=== PATIENT | female | born 1970 | race Caucasian/White ===

== ENCOUNTER 2023-11-05 18:59 | Emergency (ER) | payer OTHER, SELFPAY ==
[2023-11-05 19:09] VITALS: BP 193/91; PULSE 97; RESP 18; TEMP 36.8; O2SAT 96; BMI 34.3
--- NOTE | 2023-11-05 19:17 | DI.RAD.S_ITS ---
PROCEDURE: XR WRIST LT MIN 3V INDICATIONS: Fall, pain, decreased ROM, previous rotator cuff surgery TECHNIQUE: For views of the wrist were acquired. COMPARISON: [facility], CR, XR SHOULDER LT MIN 2V, 11/05/2023, 19:18. FINDINGS: Bones: No fractures or dislocations. No suspicious bony lesions. Moderate to severe osteoarthritic changes, most pronounced at the triscaphe joint and the 1st carpometacarpal joint. Soft tissues: No suspicious soft tissue calcifications. IMPRESSION: 1. No acute bony abnormality. 2. Moderate to severe degenerative joint disease. Dictated by: Angie Fernandez M.D. on 11/05/2023 at 19:57 Approved by: Angie Fernandez M.D. on 11/05/2023 at 19:59
--- NOTE | 2023-11-05 19:17 | DI.RAD.S_ITS ---
PROCEDURE: XR SHOULDER LT MIN 2V INDICATIONS: Fall, pain, decreased ROM, previous rotator cuff surgery TECHNIQUE: 3 views of the shoulder were acquired. COMPARISON: [facility], CR, XR WRIST LT MIN 3V, 11/05/2023, 19:18. FINDINGS: Bones: No fractures or dislocations. No suspicious bony lesions. Postsurgical changes related to rotator cuff tendon repair. Superior migration of the humeral head, in keeping with chronic rotator cuff tendon tear. Visualized ribs appear intact. Soft tissues: No suspicious soft tissue calcifications. IMPRESSION: No acute bony abnormality. If clinical symptoms persist or clinical suspicion for pathology is high, a repeat examination in 7-10 days, or advanced imaging such as CT or MRI is suggested for further evaluation. Dictated by: Angie Fernandez M.D. on 11/05/2023 at 19:59 Approved by: Angie Fernandez M.D. on 11/05/2023 at 20:00
[2023-11-05] MEDS: ACETAMINOPHEN 325 MG TABLET 650 MG PO (20:43)
--- NOTE | 2023-11-05 20:43 | ED.GENADULT ---
HPI - General Adult General Chief complaint: Extremity Injury, Upper Stated complaint: GLF, L Shoulder/Wrist Injury Time Seen by Provider: 11/05/23 20:38 Source: patient Mode of arrival: Family Vehicle History of Present Illness HPI narrative: Patient is a 53-year-old female. Has had multiple rotator cuff surgeries to her left and right shoulders. She stated that while camping today she tripped and fell landing on her left shoulder and left wrist. She thinks she was potentially injured the rotator cuff under left shoulder once again. She reports no other injuries from the event. Did not hit her head. No loss of consciousness. Not on anticoagulation. Related Data Allergies Allergy/AdvReac Type Severity Reaction Status Date / Time aspirin Allergy Verified 11/05/23 19:21 iron Allergy Verified 11/05/23 19:21 latex Allergy Verified 11/05/23 19:21 phenobarbital Allergy Verified 11/05/23 19:21 adhesive AdvReac Verified 11/05/23 19:21 adhesive tape AdvReac Verified 11/05/23 19:21 morphine AdvReac Hallucinati Verified 11/05/23 19:21 ng NSAIDS (Non-Steroidal AdvReac Gastrointestinal Verified 11/05/23 19:21 Anti-Inflamma Upset Review of Systems Constitutional Constitutional: Reports system reviewed and no additional complaints, except as documented Musculoskeletal Musculoskeletal: Reports system reviewed and no additional complaints, except as documented Integumentary/Breasts Skin/Breast: Reports system reviewed and no additional complaints, except as documented Neurologic Neurologic: Reports system reviewed and no additional complaints, except as documented Exam Initial Vital Signs Initial Vital Signs: Vital Signs Temperature 98.3 F 11/05/23 19:09 Pulse Rate 97 H 11/05/23 19:09 Respiratory Rate 18 11/05/23 19:09 Blood Pressure 193/91 H 11/05/23 19:09 Pulse Oximetry 96 11/05/23 19:09 Oxygen Delivery Method Room Air 11/05/23 19:09 Cardio Pulses: radial pulses present on the left Skin General: no rashes or lesions noted Neuro Sensory Exam: no sensory deficits noted Extrem Other: Discomfort with palpation of the left shoulder left elbows unremarkable. Course Orders Ordered: ED Orders 11/05/23 19:17 XR shoulder LT min 2V Stat XR wrist LT min 3V Stat Discontinued Medications Acetaminophen (Acetaminophen 325 Mg Tablet) 650 mg PO NOW ONE Stop: 11/05/23 20:39 Last Admin: 11/05/23 20:43 Dose: 650 mg Documented By: GRACIELA Hydrocodone Bitart/Acetaminophen (Hydrocodone/Acet 5/325 Prepack) 1 bottle MISC DIRECTED ONE Stop: 11/05/23 20:44 Last Admin: 11/05/23 20:54 Dose: 1 bottle Documented By: ROSSANA Vital Signs Vital signs: Vital Signs - 8 hr 11/05/23 19:09 Temperature 98.3 F Pulse Rate 97 H Respiratory Rate 18 Blood Pressure 193/91 H Pulse Oximetry 96 Oxygen Delivery Method Room Air Medical Decision Making Imaging Data Extremity x-ray #1: Radiologist's Impression: PROCEDURE: XR SHOULDER LT MIN 2V INDICATIONS: Fall, pain, decreased ROM, previous rotator cuff surgery TECHNIQUE: 3 views of the shoulder were acquired. COMPARISON: [facility], , XR WRIST LT MIN 3V, 11/05/2023, 19:18. FINDINGS: Bones: No fractures or dislocations. No suspicious bony lesions. Postsurgical changes related to rotator cuff tendon repair. Superior migration of the humeral head, in keeping with chronic rotator cuff tendon tear. Visualized ribs appear intact. Soft tissues: No suspicious soft tissue calcifications. IMPRESSION: No acute bony abnormality. If clinical symptoms persist or clinical suspicion for pathology is high, a repeat examination in 7-10 days, or advanced imaging such as CT or MRI is suggested for further evaluation. Extremity x-ray #2: Radiologist's Impression: PROCEDURE: XR WRIST LT MIN 3V INDICATIONS: Fall, pain, decreased ROM, previous rotator cuff surgery TECHNIQUE: For views of the wrist were acquired. COMPARISON: [facility], , XR SHOULDER LT MIN 2V, 11/05/2023, 19:18. FINDINGS: Bones: No fractures or dislocations. No suspicious bony lesions. Moderate to severe osteoarthritic changes, most pronounced at the triscaphe joint and the 1st carpometacarpal joint. Soft tissues: No suspicious soft tissue calcifications. IMPRESSION: 1. No acute bony abnormality. 2. Moderate to severe degenerative joint disease. MDM Narrative Medical decision making narrative: No fractures no dislocations noted on the x-rays. Patient is neurovascularly intact. It is difficult to obtain a complete examination of her shoulder given the discomfort that she was in. We discussed the possibility of a ligamentous injury. Will provide pain control and a sling for now. Will discharge home with return precautions. She expressed understanding and agreement with the plan. Discharge Plan Departure Patient Disposition: Home Clinical Impression: Injury of shoulder, left Instructions: How to Use a Sling, How To Perform RICE (Rest, Ice, Compress, Elevate), DI for Shoulder Pain Activity Restrictions/Additional Instructions: No fractures are noted on the x-rays. The sling is for your comfort however I do recommend that you were out of the sling as much as possible and moving your shoulder. Contact your primary doctor for a follow-up. Return to the emergency department for new symptoms. Stand Alone Forms: Patient Portal/API
[2023-11-05] MEDS: HYDROCODONE/ACET 5/325 PREPACK 1 BOTTLE MISC (20:54)
== END 2023-11-05 21:02 | disposition home or self-care (01) ==
PROVIDERS: Emergency Provider Emergency Medicine
DX: S49.92XA Unspecified injury of left shoulder and upper arm, initial encounter (principal); W01.0XXA Fall on same level from slipping, tripping and stumbling without subsequent striking against object, initial encounter
CPT/HCPCS: 73030; 73110; 99283